=== PATIENT | female | born 1955 | race Caucasian/White ===

== ENCOUNTER 2017-05-17 19:40 | Emergency (ER) | payer BC ==
[~2017-05-17] VITALS: Ht 144.8 cm; Wt 38.8 kg
[2017-05-17 19:53] VITALS: BP 142/82
[2017-05-17] MEDS ORDERED: HYDROcodone/acetaminophen 5mg/325mg tablet PO ONE (20:25)
[2017-05-17] MEDS ORDERED: HYDR-3965 PO (20:32)
== END 2017-05-17 20:51 | disposition home or self-care (01) ==
LOC: ER 19:41
DX: S46.912A Strain of unspecified muscle, fascia and tendon at shoulder and upper arm level, left arm, initial encounter (principal); F17.200 Nicotine dependence, unspecified, uncomplicated; Y93.E2 Activity, laundry; Y93.89 Activity, other specified; Y92.89 Other specified places as the place of occurrence of the external cause; Y99.8 Other external cause status
CPT/HCPCS: 99283; A4565